=== PATIENT | male | born 1985 | race Caucasian/White ===

== ENCOUNTER 2018-10-15 08:41 | Emergency (ER) | payer BC, OTHER ==
--- NOTE | 2018-10-15 09:09 | EDM.PDOC ---
ED HPI GENERAL MEDICAL PROBLEM - General Chief Complaint: General Stated Complaint: finger trauma Time Seen by Provider: 10/15/18 08:45 Source of Information: Reports: Patient History Limitations: Reports: No Limitations - History of Present Illness INITIAL COMMENTS - FREE TEXT/NARRATIVE: Was working at [employer] and tire dropped on the end of 2-3 fingers. the nail on the second finger is partially avulsed from the nail bed. The tip of the 3rd finger is amputated and bone is exposed. Skin is avulsed down to the MIP joint. Minimal amount of bleeding noted when arriving. No other injury noted to the area. Has good sensation noted to the tip of the second finger. Area was cleaned and soaked in normal saline. Onset: Today Onset Date: 10/15/18 Onset Time: 08:40 Location: Reports: Upper Extremity, Right Associated Symptoms: Reports: No Other Symptoms Right Finger-Middle Pain Score (Numeric/FACES): 5 - Related Data Allergies Allergy/AdvReac Type Severity Reaction Status Date / Time No Known Allergies Allergy Verified 10/15/18 08:43 Home Meds: Home Meds EPINEPHrine [Primatene Mist] 1 ampule INH QID PRN 02/24/14 [History] Past Medical History Respiratory History: Reports: Asthma Social & Family History - Living Situation & Occupation Living situation: Reports: with Family Occupation: Employed ED ROS GENERAL - Review of Systems Review Of Systems: See Below Respiratory: Reports: No Symptoms Cardiovascular: Reports: No Symptoms GI/Abdominal: Reports: No Symptoms Musculoskeletal: Reports: Other (see HPI) ED EXAM, GENERAL - Physical Exam Exam: See Below Exam Limited By: No Limitations General Appearance: Alert, WD/WN, Moderate Distress Respiratory/Chest: No Respiratory Distress, Lungs Clear, Normal Breath Sounds Cardiovascular: Regular Rate, Rhythm Extremities: Other (distal tip of the 3rd finger is avulsed with bone exposed. Skin is avulsed down to the MIP joint. Partial disruption of the base of the nail on the second nail.) Psychiatric: Normal Affect Skin Exam: Warm, Dry, Intact Course - Vital Signs Last Recorded V/S: Last Vital Signs Temp 98.2 F 10/15/18 08:56 Pulse 97 10/15/18 08:56 Resp 18 10/15/18 08:56 BP 121/88 10/15/18 08:56 Pulse Ox 97 10/15/18 08:56 - Orders/Labs/Meds Orders: Active Orders 24 hr Category Date Time Status Vaccines to be Administered [RC] PER UNIT ROUTINE Care 10/15/18 09:47 Active Hand Comp Min 3V Rt [CR] Stat Exams 10/15/18 08:56 Taken Meds: Medications Discontinued Medications Generic Name Dose Route Start Last Admin Trade Name Mert PRN Reason Stop Dose Admin Diphtheria/Tetanus/Acell Pertussis 0.5 ml 10/15/18 09:47 10/15/18 09:51 Adacel IM 10/15/18 09:48 0.5 ml .ONCE ONE Administration Lidocaine HCl Confirm 10/15/18 08:39 10/15/18 09:22 Xylocaine 1% Administered 10/15/18 08:40 Not Given Dose 20 ml .ROUTE .STK-MED ONE Lidocaine HCl 20 ml 10/15/18 09:18 10/15/18 09:21 Xylocaine 1% INJECT 10/15/18 09:19 20 ml ONETIME ONE Administration - Re-Assessments/Exams Free Text/Narrative Re-Assessment/Exam: 10/15/18 0930 4 ml of 1% lidocaine was instilled at the base of the 2-3 fingers for anesthesia and to be able to examine the pt. Bone is extending out past the edges of the skin. Unable to close as not enough sin available to cover the end. 10/15/18 09:42 finger was dressed with sterile dressings. Discussed case with Dr. Singh staffJaz. He is willing to accept the pt into the [facility] clinic and evaluate. Pt will go by private car. Last oral intake approximately 0800 has not ate anything this AM. Tdap given. 10/15/18 09:50 Risks of going by private car were discussed with the pt to include increase in pain, and rebleeding of the site. Benefits of transfer will include specialized care of surgeon to be able to eval and treat as that is not available here. Risks and benefits were acknowledged by pt and he wishes to proceed with the transfer and go by private car. Pt father will transfer. Instructed that he is not to eat, drink or smoke until after seen by the surgeon. Departure - Departure Time of Disposition: 09:56 Disposition: DC/Tfer to Other 70 Condition: Good Clinical Impression: Amputation of finger of right hand Qualifiers: Encounter type: initial encounter Qualified Code(s): S68.119A - Complete traumatic metacarpophalangeal amputation of unspecified finger, initial encounter - Discharge Information *PRESCRIPTION DRUG MONITORING PROGRAM REVIEWED*: Not Applicable *COPY OF PRESCRIPTION DRUG MONITORING REPORT IN PATIENT JAMIL: Not Applicable Referrals: PCP,None [Primary Care Provider] - Forms: ED Department Discharge Additional Instructions: go to Dr. Singh office at [facility] in [place] DO not eat, drink or smoke until after seen by Dr. Singh Elevate fingers until seen - Problem List & Annotations (1) Amputation of finger of right hand SNOMED Code(s): 81403686, 46792788 Code(s): S68.119A - COMPLETE TRAUMATIC MCP AMPUTATION OF UNSP FINGER, INIT Status: Acute Priority: High Qualifiers: Encounter type: initial encounter Qualified Code(s): S68.119A - Complete traumatic metacarpophalangeal amputation of unspecified finger, initial encounter - Problem List Review Problem List Initiated/Reviewed/Updated: Yes - My Orders Last 24 Hours: My Active Orders 10/15/18 08:56 Hand Comp Min 3V Rt [CR] Stat 10/15/18 09:47 Vaccines to be Administered [RC] PER UNIT ROUTINE - Assessment/Plan Last 24 Hours: My Active Orders 10/15/18 08:56 Hand Comp Min 3V Rt [CR] Stat 10/15/18 09:47 Vaccines to be Administered [RC] PER UNIT ROUTINE
[2018-10-15 09:10] VITALS: BP 121/88
[2018-10-15] MEDS: Lidocaine 1% 20 ML MDV INJECT ONE (09:21)
[2018-10-15] MEDS: Lidocaine 1% 20 ML MDV ONE (09:22)
[2018-10-15] MEDS: Diphtheria,Pertussis(Acell),Tetanus Vaccine 0.5 ML Syringe IM ONE (09:51)
== END 2018-10-15 10:15 | disposition other institution (70) ==
LOC: CC.ED 08:41
DX: S68.112A Complete traumatic metacarpophalangeal amputation of right middle finger, initial encounter (principal); S61.300A Unspecified open wound of right index finger with damage to nail, initial encounter; W20.8XXA Other cause of strike by thrown, projected or falling object, initial encounter
CPT/HCPCS: 73130-RT; 90471; 90472; 90715; 99283-25; J2001

== ENCOUNTER 2018-11-02 21:02 | Emergency (ER) | payer SELFPAY ==
[2018-11-02] MEDS ORDERED: Acetaminophen/HYDROcodone 325-5 MG Tab PO ONE (21:03)
[2018-11-02 21:09] VITALS: BP 162/85
--- NOTE | 2018-11-02 21:32 | EDM.PDOC ---
ED HPI GENERAL MEDICAL PROBLEM - General Chief Complaint: ENT Problem Stated Complaint: DENTAL PAIN Time Seen by Provider: 11/02/18 21:32 Source of Information: Reports: Patient History Limitations: Reports: No Limitations - History of Present Illness INITIAL COMMENTS - FREE TEXT/NARRATIVE: Parag is a 33 year old male who presents to the ED with c/o right tooth/upper jaw pain. He reports pain first started yesterday afternoon and has worsened since. He reports he was unable to sleep last night due to the pain, but then fell asleep today and slept through clinic time. He reports he wasn't sure he could make it all night with the pain. He reports he has poor dentition and multiple broken teeth but cannot afford to go to the dentist. Denies any fever or chills. No redness to face. Does have noted swelling to right upper jaw. Onset Date: 11/01/18 Duration: Getting Worse Location: Reports: Other (right upper tooth) Improves with: Reports: None Associated Symptoms: Reports: No Other Symptoms Treatments EMPLOYEE ADVISER: Reports: Acetaminophen, NSAIDS Right Cheek Pain Score (Numeric/FACES): 8 - Related Data Allergies Allergy/AdvReac Type Severity Reaction Status Date / Time No Known Allergies Allergy Verified 11/02/18 21:08 Home Meds: Home Meds EPINEPHrine [Primatene Mist] 1 ampule INH QID PRN 02/24/14 [History] Acetaminophen/HYDROcodone [[place] 325-5 MG] 1 - 2 tab PO Q6H PRN #15 tablet 11/02 [Rx] Clindamycin HCl 300 mg PO QID 10 Days #40 capsule 11/02/18 [Rx] Past Medical History - Past Health History Medical/Surgical History: Denies Medical/Surgical History Respiratory History: Reports: Asthma - Past Surgical History Musculoskeletal Surgical History: Reports: Amputation Other Musculoskeletal Surgeries/Procedures:: R)MIDDLE FINGER AMPUTATION Social & Family History - Family History Family Medical History: Noncontributory - Tobacco Use Smoking Status *Q: Current Every Day Smoker Years of Tobacco use: 22 Packs/Tins Daily: 1 - Caffeine Use Caffeine Use: Reports: Coffee - Recreational Drug Use Recreational Drug Use: No - Living Situation & Occupation Living situation: Reports: with Family Occupation: Employed ED ROS ENT - Review of Systems Review Of Systems: ROS reveals no pertinent complaints other than HPI. ED EXAM, ENT - Physical Exam Exam: See Below Exam Limited By: No Limitations General Appearance: Alert, WD/WN, No Apparent Distress Eye Exam: Bilateral Eye: EOMI, Normal Fundi, Normal Inspection, PERRL Mouth/Throat: Normal Oropharynx, Dental Abcess (right upper teeth, multiple areas swollen/tender), Dental Tenderness, Gum Swelling (right upper), Other ( poor dentition, missing teeth, broken teeth) Lymphatic: No Adenopathy Course - Vital Signs Last Recorded V/S: Last Vital Signs Temp 99.1 F 11/02/18 21:04 Pulse 68 11/02/18 21:04 Resp 20 11/02/18 21:04 BP 162/85 H 11/02/18 21:04 Pulse Ox 99 11/02/18 21:04 - Orders/Labs/Meds Orders: Active Orders 24 hr Category Date Time Status Clindamycin HCl [Cleocin] Med 11/02/18 21:45 Once 600 mg PO ONETIME ONE Meds: Medications Discontinued Medications Generic Name Dose Route Start Last Admin Trade Name Mert PRN Reason Stop Dose Admin Hydrocodone Bitart/Acetaminophen 2 packet 11/02/18 21:41 Take Home: Acetaminophen/Hydrocod, 2 Tab Pack PO 11/02/18 21:42 ONETIME ONE Clindamycin HCl 150 mg 11/02/18 21:41 Cleocin PO 11/02/18 21:42 ONETIME ONE Departure - Departure Time of Disposition: 21:46 Disposition: Home, Self-Care 01 Condition: Good Clinical Impression: Dental abscess - Discharge Information *PRESCRIPTION DRUG MONITORING PROGRAM REVIEWED*: Yes *COPY OF PRESCRIPTION DRUG MONITORING REPORT IN PATIENT JAMIL: No Prescriptions: Clindamycin HCl 300 mg PO QID 10 Days #40 capsule Instructions: Dental Abscess, [id number] Forms: ED Department Discharge Additional Instructions: 1) Clindamycin 300 mg four times daily (every 6 hours) x 10 days. Script can be picked up at [facility] tomorrow. 2) [place] 1-2 tablets every 6 hours as needed for pain. May use Tylenol 1000 mg Q6 hours or ibuprofen 800 mg Q8hrs for less severe pain. Do not exceed 4000 mg Tylenol ([place] has acetaminophen/Tylenol as well) in 24 hour period or 2400 mg ibuprofen in 24 hour period. 3) Discussed need for future tooth extraction. Follow up with dentist as able. 4) Follow up in clinic if symptoms worsen or do not improve 5) Return to ED for any emergent needs - My Orders Last 24 Hours: My Active Orders 11/02/18 21:45 Clindamycin HCl [Cleocin] 600 mg PO ONETIME ONE - Assessment/Plan Last 24 Hours: My Active Orders 11/02/18 21:45 Clindamycin HCl [Cleocin] 600 mg PO ONETIME ONE
[2018-11-02] MEDS ORDERED: Clindamycin HCl 150 MG Cap PO ONE (21:41)
[2018-11-02] MEDS: Clindamycin HCl 150 MG Cap PO ONE (21:49)
[2018-11-02] MEDS: Take Home: Acetaminophen/HYDROcodone 325-5 MG, 2 Tab Pack PO ONE (21:51)
== END 2018-11-02 21:57 | disposition home or self-care (01) ==
LOC: CC.ED 21:02
DX: K04.7 Periapical abscess without sinus (principal); F17.210 Nicotine dependence, cigarettes, uncomplicated
CPT/HCPCS: 99282; A9270

== ENCOUNTER 2019-08-23 16:22 | Emergency (ER) | payer SELFPAY ==
[2019-08-23 16:33] VITALS: PULSE 95
[2019-08-23 16:41] VITALS: BP 134/87
[2019-08-23] MEDS ORDERED: Ketorolac 60 MG/2 ML SDV IM ONE (17:01)
--- NOTE | 2019-08-23 17:05 | EDM.PDOC ---
ED HPI GENERAL MEDICAL PROBLEM - General Chief Complaint: General Stated Complaint: MOUTH PAIN Time Seen by Provider: 08/23/19 16:57 Source of Information: Reports: Patient History Limitations: Reports: No Limitations - History of Present Illness INITIAL COMMENTS - FREE TEXT/NARRATIVE: Parag is a 34 yo male who presents to the ED with concerns of a tooth abscess. Admits to history of poor teeth dentition and called to schedule appointment with Dr. Vu for next week Friday. Has had tooth abscess in the past and admits Amoxicillin usually only works for him. States it feels like a typical abscess to him. mouth Pain Score (Numeric/FACES): 8 - Related Data Allergies Allergy/AdvReac Type Severity Reaction Status Date / Time No Known Allergies Allergy Verified 08/23/19 16:33 Home Meds: Home Meds Albuterol Sulfate [Proair Digihaler] 1 puff INH Q2HR PRN 08/23/19 [History] Past Medical History - Past Health History Medical/Surgical History: Denies Medical/Surgical History Respiratory History: Reports: Asthma - Past Surgical History Musculoskeletal Surgical History: Reports: Amputation Other Musculoskeletal Surgeries/Procedures:: R)MIDDLE FINGER AMPUTATION Social & Family History - Family History Family Medical History: Noncontributory - Tobacco Use Smoking Status *Q: Current Every Day Smoker Years of Tobacco use: 20 Packs/Tins Daily: 0.5 - Caffeine Use Caffeine Use: Reports: Coffee - Living Situation & Occupation Living situation: Reports: with Family Occupation: Employed ED ROS GENERAL - Review of Systems Review Of Systems: Comprehensive ROS is negative, except as noted in HPI. ED EXAM, GENERAL - Physical Exam Exam: See Below Exam Limited By: No Limitations General Appearance: Alert, WD/WN, No Apparent Distress Ears: Normal External Exam, Normal Canal, Hearing Grossly Normal, Normal TMs Nose: Normal Inspection, Normal Mucosa, No Blood Throat/Mouth: Normal Inspection, Normal Lips, Normal Oropharynx, Normal Voice, No Airway Compromise, Other (poor dentition with multiple broken discolored teeth. Tenderness along right top gum line into right maxillary sinus. ). No: Normal Teeth Head: Atraumatic, Normocephalic Neck: Normal Inspection, Supple. No: Lymphadenopathy (L), Lymphadenopathy (R) Course - Vital Signs Last Recorded V/S: Last Vital Signs Temp 98 F 08/23/19 16:30 Pulse 95 08/23/19 16:30 Resp 18 08/23/19 16:30 BP 134/87 08/23/19 16:41 Pulse Ox 96 08/23/19 16:30 Departure - Departure Time of Disposition: 17:03 Disposition: Home, Self-Care 01 Clinical Impression: Dental abscess - Discharge Information Instructions: Dental Abscess, [id number] Additional Instructions: 1) Amoxicillin 875mg twice a day for 10 days 2) Recommend taking 1000mg of Tylenol with 600mg of ibuprofen every 6 hours as needed for pain 3) If any fevers, worsening of discomfort or any concerns at all, recommend reevaluation in ED. Sepsis Event Note - Evaluation Sepsis Screening Result: No Definite Risk - Focused Exam Vital Signs: Vital Signs Temp Pulse Resp BP Pulse Ox 08/23/19 16:41 134/87 08/23/19 16:30 98 F 95 18 151/82 H 96 Date Exam was Performed: 08/23/19 Time Exam was Performed: 17:00 - Problem List & Annotations (1) Dental abscess SNOMED Code(s): 208586226 Code(s): K04.7 - PERIAPICAL ABSCESS WITHOUT SINUS Status: Acute - Assessment/Plan Plan: See additional instructions. 60mg of Toradol given IM in ED. Patient has special client bus driver present with him.
== END 2019-08-23 17:11 | disposition home or self-care (01) ==
LOC: CC.ED 16:22
DX: K04.7 Periapical abscess without sinus (principal); J45.909 Unspecified asthma, uncomplicated; F17.210 Nicotine dependence, cigarettes, uncomplicated
CPT/HCPCS: 96372; 99282; J1885